=== PATIENT | male | born 1975 | race American Indian/Alaskan Native ===

== ENCOUNTER 2017-03-12 02:18 | Emergency (ER) | payer OTHER ==
[2017-03-12] MEDS ORDERED: ULTRAM PO ONE (07:15)
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
[2017-03-12 09:38] VITALS: BP 126/74
== END 2017-03-12 09:16 | disposition home or self-care (01) ==
LOC: ED 02:18
DX: S13.4XXA Sprain of ligaments of cervical spine, initial encounter (principal); R51 Headache; V49.49XA Driver injured in collision with other motor vehicles in traffic accident, initial encounter; Y92.488 Other paved roadways as the place of occurrence of the external cause; Y93.89 Activity, other specified; Y99.8 Other external cause status
CPT/HCPCS: 70450